=== PATIENT | male | born 1980 | race Caucasian/White ===

== ENCOUNTER 2024-04-15 04:56 | Inpatient (IN) | payer MEDICARE ==
[~2024-04-15] VITALS: Ht 182.9 cm; Wt 89.9 kg
[2024-04-15] VITALS (16 sets, daily range): BP systolic 98–126; BP diastolic 66–96
[~2024-04-15 04:56] MED LIST: GUIATUSS AC SY120 ML PO; LITHIUM CARBON300 MG PO; PAXIL30 MG PO; SEROQUEL100 MG PO; ZITHROMAX500 MG PO
[2024-04-15] MEDS ORDERED: CEFTRIAXONE SODIUM 2 GM in SODIUM CHLORIDE 0.9% 100 ML IV ONE (05:15)
[2024-04-15] MEDS ORDERED: SODIUM CHLORIDE 0.9% 1,000 ML IV ONE ×2 (05:15→05:45)
[2024-04-15 05:21] LABS: PH, VENOUS 7.446 (7.31-7.41)
[2024-04-15] MEDS ORDERED: CEFTRIAXONE SODIUM 2 GM VIAL ONE (05:21)
[2024-04-15 05:23] LABS: BASOPHILS 0.3 % (0-2); HEMATOCRIT 42.5 % (35.0-50.0); HEMOGLOBIN 14.7 g/dL (12.0-18.0); LYMPHOCYTES 2.3 % (24-44); MCH 29.2 (27-36); MCHC 34.5 g/dl (30-36); MCV 84.5 fl (81-99); MONOCYTES 5.7 % (0-12); NEUTROPHILS 91.7 % (39-80); PLATELET COUNT 118 K/uL (140-440); RBC 5.02 M/ul (4.3-5.7); RDW 13.8 (10.5-15.0)
[2024-04-15 05:33] LABS: LITHIUM 1.6 mmol/L (0.6-1.2)
[2024-04-15 05:37] LABS: ALBUMIN 4.8 g/dL (3.4-5.0); ALBUMIN/GLOBULIN RATIO 1.66 (1.1-2.4); ANION GAP 22.7 (7-21); BILIRUBIN, TOTAL 1.2 mg/dL (0.2-1.0); BUN/CREATININE RATIO 9.12 (6.0-28.6); CALCIUM 10.4 mg/dL (8.5-10.1); CREATININE, SERUM 2.74 mg/dL (0.70-1.30); POTASSIUM 2.7 mmol/L (3.5-5.1); PROTEIN, TOTAL 7.7 g/dL (6.4-8.2)
[2024-04-15] MEDS ORDERED: MIDAZOLAM HCL 2 MG/2 ML VIAL IV ONE ×3 (05:45→06:30)
[2024-04-15] MEDS ORDERED: ACETAMINOPHEN 1,000 MG/100 ML VIAL IV ONE (05:45)
[2024-04-15 05:46] LABS: CORONAVIRUS COVID-19 AG NEGATIVE (NEGATIVE); INFLUENZA A AG POSITIVE (NEGATIVE); INFLUENZA B AG NEGATIVE (NEGATIVE)
[2024-04-15 05:46] LABS: LACTIC ACID, BLOOD 2.1 mmol/L (0.4-2.0)
[2024-04-15 05:53] LABS: BILIRUBIN, URINE NEGATIVE (negative); BLOOD/HGB, URINE SMALL (Negative); KETONE, URINE NEGATIVE (Negative); LEUK ESTERASE, URINE NEGATIVE (negative); NITRITE, URINE NEGATIVE (negative); PH, URINE 5.5 (5-7)
[2024-04-15 05:58] LABS: BACTERIA, URINE 2+ /hpf (negative); RED BLOOD CELLS, URINE 0-1 /hpf (0-5)
[2024-04-15 05:59] LABS: CASTS, URINE NONE SEEN \\lpf; COLLECTION TYPE, URINE CLEAN CATCH; CRYSTALS, URINE NONE SEEN (0-1+); EPITHELIAL CELLS, URINE SQUAMOUS 1+ /lpf (0-1+); REFLEX CULTURE, URINE Yes (No)
[2024-04-15 06:12] LABS: AMPHETAMINES, URINE NEGATIVE (NEGATIVE); BARBITURATES, URINE NEGATIVE (NEGATIVE); BENZODIAZEPINE, URINE NEGATIVE (NEGATIVE); CANNABINOID, URINE NEGATIVE (NEGATIVE); COCAINE, URINE NEGATIVE (NEGATIVE); ECSTASY, URINE NEGATIVE (NEGATIVE); FENTANYL, URINE NEGATIVE (NEGATIVE); METHADONE, URINE NEGATIVE (NEGATIVE); OPIATES, URINE NEGATIVE (NEGATIVE); OXYCODONE, URINE NEGATIVE (NEGATIVE); PHENCYCLIDINE, URINE NEGATIVE (NEGATIVE)
[2024-04-15 06:23] LABS: BUPRENORPHINE, URINE NEGATIVE (NEGATIVE)
[2024-04-15 06:29] LABS: GLUCOSE, CSF 67 mg/dL (40-70); PROTEIN, CSF 45 mg/dL (15-45)
[2024-04-15] MEDS ORDERED: ETOMIDATE 40 MG/20 ML VIAL IV ONE (06:30)
[2024-04-15 06:32] LABS: CLARITY, CEREBROSPINAL FLUID CLEAR; COLOR, CEREBROSPINAL FLUID COLORLESS; RBC, CEREBROSPINAL FLUID 0; WBC, CEREBROSPINAL FLUID 3
[2024-04-15] MEDS ORDERED: POTASSIUM CHLORIDE 10 MEQ/100 ML BAG IV SCH (06:45)
[2024-04-15 07:30] LABS: LACTIC ACID, BLOOD 1.4 mmol/L (0.4-2.0)
[2024-04-15] MEDS ORDERED: POTASSIUM CHLORIDE 40 MEQ,LIDOCAINE HCL 1% 40 MG in DEXTROSE 5% 250 ML IV ONE (08:15)
[2024-04-15] MEDS ORDERED: LACTATED RINGER'S 1,000 ML IV SCH (08:15)
[2024-04-15] MEDS ORDERED: ondansetron HCL 4 MG/2 ML VIAL IV PRN (08:15)
[2024-04-15] MEDS ORDERED: ACETAMINOPHEN 325 MG TAB PO PRN (08:15)
[2024-04-15] MEDS ORDERED: OSELTAMIVIR PHOSPHATE 75 MG CAP PO SCH (09:00)
--- NOTE | 2024-04-15 09:05 | NUR ---
Patient transported to CCU by this RN. Patient drowsy, arousable to touch/talk, no sustained waking periods. Able to verbally say "yes"- no other words. Pupils WNL. BP stable. HRR. Titrated from 8L to 3L, spo2 tolerating, continuing to titrate as appropriate. Apneic periods noted. Larios temp probe reading afebrile, patient making clear yellow urine. HX and assessment complete. Red area to sacrum, blanchable. Abrasion to L knee and L foot post GLF BALLOON DIPPER. Pt father endorses that patient has absolutely no health history other than bipolar dx.
[2024-04-15] MEDS ORDERED: VITAMIN D21250 MCG PO (09:44)
[2024-04-15 10:14] LABS: ANION GAP 18.7 (7-21); BUN/CREATININE RATIO 11.79 (6.0-28.6); CALCIUM 9.2 mg/dL (8.5-10.1); CREATININE, SERUM 2.12 mg/dL (0.70-1.30); POTASSIUM 2.7 mmol/L (3.5-5.1)
--- NOTE | 2024-04-15 10:22 | NUR ---
PATIENT UNABLE TO ANSWER QUESTIONS. FATHER, DON, IN ROOM AND ANSWERS QUESTIONS. PATIENT LIVES WITH FATHER AND BROTHER IN HOUSE. HE HAS NO DME. PATIENT DOES NOT DRIVE, HIS FATHER PROVIDES TRANSPORTATION FOR HIM. FATHER DENIES HE HAS ANY DIFFICULTY PAYING UTILTIES OR OBTAINING FOOD OR MEDICATIONS. DENIES CM NEEDS AT THIS TIME. WILL CONTINUE TO FOLLOW PATIENT WHILE IN FACILITY. FATHER BELIEVES PATIENT HAS PCP IN [facility]. CALLED CLINIC, PATIENT HAS NOT BEEN SEEN SINCE 2019 AND ALL HIS PREVIOUS PROVIDERS ARE NO LONGER AT THE CLINIC. WILL REFER PATIENT TO CLINIC, WHEN HE IS CLOSER TO DISCHARGE, FOR FOLLOW-UP.
[2024-04-15 10:37] LABS: LITHIUM 0.2 mmol/L (0.6-1.2)
[2024-04-15 10:39] LABS: ACETAMINOPHEN 3 ug/mL (10-30)
[2024-04-15 10:43] LABS: SALICYLATE 4.3 mg/dL (2.8-20.0)
--- NOTE | 2024-04-15 11:46 | NUR ---
Rounded on patient who is resting in bed, spont. eye opening, verbal response words but confused to all. Larios temp reads 100.2. Bedside swallow eval passed and patient tolerates applesauce and PO medications. Pt appears to have shiver/chill symptoms, appears generally uncomfortable, PRN tylenol administered for pain relief and fever.
[2024-04-15 11:56] LABS: LITHIUM 0.2 mmol/L (0.6-1.2)
[2024-04-15] MEDS ORDERED: PHARMACY RENAL DOSE ADJUSTMENT 1 DOSE MISC PO SCH (12:00)
[2024-04-15] MEDS ORDERED: ACETAMINOPHEN 500 MG TAB PO PRN (13:15)
[2024-04-15] MEDS ORDERED: ACETAMINOPHEN 325 MG TAB PO ONE (13:15)
--- NOTE | 2024-04-15 15:38 | NUR ---
UR CLINICAL REVIEW: 2MN KRISTA, MEETS INPT FOR SEPSIS, INFLUENZA A, AMS, CAMRON, ELEVATED LITHIUM. TEMP 102, PULSE UP TO 110, HYPOTENSIVE, NEED FOR OXYGEN TO KEEP SATS >90%, POTASSIUM 2.7, CREAT 2.12. MEDICARE INPT 04/15/2024 @ 0810 ORDER MATCHES REG NO AUTH REQUIRED PER MEDICARE RULES DC PLAN PENDING FURTHER TREATMENT.
--- NOTE | 2024-04-15 15:45 | NUR ---
Discussed patient status update, no further recommendations at this time
--- NOTE | 2024-04-15 17:59 | NUR ---
Patient able to sit up in bed, this RN assists patient with eating a few bites of dinner, pt more talkative and asks "Are we at [facility]?". Patient father Don at bedside, attentive to patient and engaged in care. New bag IVF hung.
--- NOTE | 2024-04-15 21:15 | NUR ---
PATIENT PROVIDED SCHEDULED MEDS. PATIENT IS ALERT; ORIENTED TO SELF, SURROUNDINGS, AND FOLLOWING INSTRUCTIONS. PATIENT UNSURE OF DATE OR EVENT LEADING TO ADMISSION. PATIENT IS SLOW TO RESPOND BUT HAS CLEAR SPEECH. TOLERATES PO MEDS AND WATER WITHOUT CONCERN. TOLERATING ROOM AIR; LUNG SOUNDS ARE CLEAR. OCCATIONAL DRY COUGH. MAYBERRY IN PLACE; MAYBERRY CARE DONE. DILUTE URINE NOTED WITH QS OUTPUT. IVF PER ORDER; SITES WNL X2. PATIENT DENIED ANY NEEDS AND IS REQUESTING TO GO TO BED. LIGHTS DIMMED. CALL LIGHT IN REACH. BED ALARM ACTIVE.
--- NOTE | 2024-04-15 22:30 | NUR ---
PATIENT RESTING IN BED. EYES CLOSED. VS STABLE. IV FLUIDS INFUSING; SITE WNL. MAYBERRY DRAINING CLEAR YELLOW URINE. CALL LIGHT IN REACH.
[2024-04-16] VITALS (11 sets, daily range): BP systolic 94–119; BP diastolic 65–83
--- NOTE | 2024-04-16 00:15 | NUR ---
PATIENT AWAKE WHEN RN ENTERED ROOM. PATIENT REMAINS ORIENTED X4. SPEECH IS CLEAR. PATIENT REPORTS HAVING TROUBLE SLEEPING WITHOUT HIS HOME MEDS. DISCUSSED PLAN OF CARE AND ASSURED PATIENT MED REVIEW WOULD BE DONE IN THE MORNING. PATIENT VERBALIZED UNDERSTANDING. PATIENT DENIED OTHER NEEDS. REPORTS BEING COMFORTABLE. VS STABLE. TOLERATING ROOM AIR. CALL LIGHT IN REACH. BED ALARM ACTIVE.
--- NOTE | 2024-04-16 05:00 | NUR ---
PATIENT RESTING IN BED. DENIED PAIN OR SOB. PATIENT DOSE STATE HIS THROAT IS A LITTLE SORE AND DRY. FRESH ICE WATER AND ORANGE JUICE PROVIDED. PATIENT IS AAOX4. SOME EVENTS FROM YESTERDAY HE IS UNSURE OF BUT HE REMEMBERS FALLING AND BEING IN THE AMBULANCE. PATIENT STATES "IT'S A LITTLE FUZZY". PATIENT HAS COORDINATED MOVEMENTS AND FOLLOWS COMMANDS EASILY. HOLDS CONVERSATION WITHOUT ISSUE. PATIENT AFFECT IS FLAT. VS STABLE. TOLERATING ROOM AIR. IV FLUIDS PER ORDER. SITE WNL. MAYBERRY EMPITED; PATIENT HAS 2900 MLS OUT IN LAST 12 HOURS. URINE IS CLEAR AND DILUTE. CALL LIGHT IN REACH. BED ALARM ACTIVE.
[2024-04-16 06:09] LABS: BASOPHILS 0.1 % (0-2); EOSINOPHILS 0.2 % (0-6); HEMATOCRIT 34.7 % (35.0-50.0); HEMOGLOBIN 11.8 g/dL (12.0-18.0); LYMPHOCYTES 5.8 % (24-44); MCH 29.2 (27-36); MCHC 34.1 g/dl (30-36); MCV 85.6 fl (81-99); MONOCYTES 3.4 % (0-12); NEUTROPHILS 90.5 % (39-80); PLATELET COUNT 87 K/uL (140-440); RBC 4.06 M/ul (4.3-5.7); RDW 13.8 (10.5-15.0)
[2024-04-16 06:21] LABS: ALBUMIN 3.2 g/dL (3.4-5.0); ALBUMIN/GLOBULIN RATIO 1.28 (1.1-2.4); BILIRUBIN, TOTAL 0.6 mg/dL (0.2-1.0); BUN/CREATININE RATIO 9.74 (6.0-28.6); CALCIUM 9.3 mg/dL (8.5-10.1); CREATININE, SERUM 1.54 mg/dL (0.70-1.30); PHOSPHORUS, INORGANIC 2.5 mg/dL (2.5-4.9); PROTEIN, TOTAL 5.7 g/dL (6.4-8.2)
[2024-04-16] MEDS ORDERED: POTASSIUM CHLORIDE 40 MEQ,LIDOCAINE HCL 1% 40 MG in DEXTROSE 5% 250 ML IV ONE (07:45)
[2024-04-16] MEDS ORDERED: POTASSIUM CHLORIDE 10 MEQ TABCR PO ONE (07:45)
--- NOTE | 2024-04-16 08:10 | NUR ---
PT UP TO BSC. INCONT OF STOOL X1. PT HAD 900 ML OF LIQUID STOOL. PT UP TO CHAIR NOW SBA. BREAKFAST TRAY SET UP. AM CARE PERFOMED. MAYBERRY CARE COMPLETE. LINEN CHANGED. PT PROVIDED WATER. DENIES ANY NEEDS AT THIS TIME, CALL LIGHT IN REACH.
--- NOTE | 2024-04-16 09:18 | NUR ---
ATTEMPT TO SEE PATIENT, NURSING CARES BEING PROVIDED.
--- NOTE | 2024-04-16 09:20 | NUR ---
PT UP IN CHAIR - EDUCATED PT ON PLAN OF CARE- REMOVED MAYBERRY WNL, IV FLUIDS STOPPED, KCL CONTINUES - SITE WNL. PT WITH CALL LIGHT IN REACH.
--- NOTE | 2024-04-16 09:22 | NUR ---
AFTER VISITING WITH PT ABOUT PCP, HE REPORTS HE DOSENT HAVE ONE, ALSO NOTED HE HAS BLACK UPPER TEETH WITH CHUNKS OF TEETH MISSING AND EXTREME BUILD UP OF CALCULI WITH BLACK DECAY NOTED ON TEETH. REPORTS NO PRIMARY DENTIST. THIS RN CALL TO CAREER TRANSITION SPECIALIST MARINE TO HELP WITH ESTABLISHING CARES FOR THE PATIENT FOLLOW UP.
--- NOTE | 2024-04-16 09:54 | NUR ---
POISON CONTROL CALLED AND RN UPDATED.
--- NOTE | 2024-04-16 09:56 | NUR ---
pts father out to rn station to request water for pt. pt provided water, denies further needs at this time. call light in reach.
--- NOTE | 2024-04-16 09:58 | NUR ---
CALL FROM Brooke BENNETT RN, SHE FEELS PATIENT NEEDS TO BE SEEN BY A DENTIST. PATIENT STATES HE HAS NO DENTAL INSURANCE AT THIS TIME. CALLED ANDRE FROM [facility] TO SEE IF PATIENT QUALIFIES FOR [facility] FOR POTENTIAL DENTAL COVERAGE. PATIENT ALSO NEEDS PCP AND REQUESTS TO BE SET UP IN [facility] IF POSSIBLE. PATIENT IS ALSO REQUESTING A WALKER FOR AMBULATION. PATIENT STATES A NO PREFERENCE TO DME COMPANY WHEN PATIENT CHOICES PROVIDED.
--- NOTE | 2024-04-16 10:27 | NUR ---
PATIENT REQUESTING WALKER FOR HOME. NURSING STAFF FEEL HE DOES NOT NEED WALKER. SPOKE WITH DR. BLUE. KOLE BLUE/[place], RN, PT EVALUATION.
--- NOTE | 2024-04-16 10:53 | NUR ---
IN ROOM TO ASSESS FOR BR NEEDS. PT DENIES NEEDING TO VOID. PTS FATHER ASKS THIS DRAPERY ROD ASSEMBLER, "DID HE GET HIS SLEEPING MEDICINE LAST NIGHT". I INFORMED PTS FATHER I DID NOT KNOW THE ANSWER TO HIS QUESTION BUT I WOULD LET THE PTS NURSE KNOW THAT HE IS ASKING. RAPHAEL MCKEON NOTIFIED. PT DENIES ANY NEEDS, CALL LIGHT IN REACH
--- NOTE | 2024-04-16 11:09 | NUR ---
PT RESTING IN CHAIR - FATHER IN ROOM, THEY ARE REQUESTING SHADE TO WINDOW DOWN TO DECREASE LIGHT, PT WOULD LIKE TO TAKE NAP. DENIES NEED TO VOID POST MAYBERRY REMOVAL. CALL LIGHT IN REACH - DENIES NEEDS.
--- NOTE | 2024-04-16 11:17 | NUR ---
RN QUESTIONED LABS FOR LITHIUM. CALL TO MANAGER PACU NEW TO DISCUSS DISCREPENCY FROM 04/15/24. DR BLUE HERE ON UNIT AND INFORMED OF NEW LAB RESULTS.
--- NOTE | 2024-04-16 11:27 | NUR ---
HERE WITH PT, PLAN TO DC TODAY TO HOME. RN CALLED MARINE AT [facility] [employer] - SHE WILL CONTINUE TO COORDINATE PT AND WALKER TODAY AND FOLLOW UP WITH PT AFTER HE RETURNS TO HOME FOR FOLLOW UP CLINIC REFERALL PCP.
--- NOTE | 2024-04-16 11:46 | NUR ---
CLINICALS SENT TO [facility] TO ESTABLISH FOLLOW-UP APPOINTMENT FOR HOSPITALIZATION. PT DOES NOT RECOMMEND ANY EQUIPMENT FOR PATIENT AT THIS TIME.
[2024-04-16] MEDS ORDERED: OSELTAMIVIR PHO75 MG PO (12:12)
--- NOTE | 2024-04-16 12:26 | NUR ---
MED REC COMPLETE
== END 2024-04-16 13:01 | disposition home or self-care (01) | DRG 871 ==
LOC: ED 04:56 → CCU 08:26 → ED 08:26 → CCU 08:29
PROVIDERS: Emergency Medicine; ADMIT Family Medicine; ATTEND Family Medicine
PROC: 009U3ZX Drainage of Spinal Canal, Percutaneous Approach, Diagnostic (ICD-10-PCS; principal; 2024-04-15)
PROC: 3E03329 Introduction of Other Anti-infective into Peripheral Vein, Percutaneous Approach (ICD-10-PCS; 2024-04-15)
DX: A41.89 Other specified sepsis (principal); J96.01 Acute respiratory failure with hypoxia; E87.20 Acidosis, unspecified; N17.9 Acute kidney failure, unspecified; J10.1 Influenza due to other identified influenza virus with other respiratory manifestations; R78.89 Finding of other specified substances, not normally found in blood; E87.6 Hypokalemia; F31.9 Bipolar disorder, unspecified; Z87.891 Personal history of nicotine dependence; Z79.899 Other long term (current) drug therapy
CPT/HCPCS: 36415; 36592; 70450; 71045; 80048; 80053; 80178; 80307; 81001; 82803; 82945; 83605; 83735; 84100; 84157; 85025; 87070; 87088; 87205; 89051; 94799; A9270; G0480; J0131; J2250; J3480; J3490; J7030; J7060; J7121